=== PATIENT | female | born 1940 | race Caucasian/White ===

== ENCOUNTER 2021-01-02 15:05 | Emergency (ER) | payer MEDICARE, OTHER ==
--- NOTE | 2021-01-02 15:23 | EDM.PDOC ---
ED HPI GENERAL MEDICAL PROBLEM - General Chief Complaint: Genitourinary Problem Stated Complaint: POSSIBLE UTI Time Seen by Provider: 01/02/21 15:22 - History of Present Illness INITIAL COMMENTS - FREE TEXT/NARRATIVE: 80-year-old female presents the emergency room with urinary tract symptoms. Patient is developed some burning and frequency with urination over the last day and a half or so. She has not had associated fevers or chills. No nausea or vomiting. No significant abdominal pain. Just some suprapubic discomfort and discomfort when she voids and the sensation that she has to go all the time. - Related Data Allergies Allergy/AdvReac Type Severity Reaction Status Date / Time No Known Allergies Allergy Verified 11/12/14 09:08 Home Meds: Home Meds Latanoprost/Pf [Latanoprost 0.005% Eye Drop] 1 drop TOP ASDIRECTED 01/02/21 [History] cephALEXin [Keflex] 500 mg PO BID #14 cap 01/02/21 [Rx] hydroCHLOROthiazide [Hydrochlorothiazide] 25 mg PO DAILY 01/02/21 [History] ED ROS GENERAL - Review of Systems Review Of Systems: See Below Constitutional: Reports: No Symptoms Respiratory: Reports: No Symptoms Cardiovascular: Reports: No Symptoms GI/Abdominal: Reports: No Symptoms : Reports: Dysuria, Frequency, Urgency. Denies: Flank Pain ED EXAM, GENERAL - Physical Exam Exam: See Below Exam Limited By: No Limitations General Appearance: Alert, No Apparent Distress Respiratory/Chest: No Respiratory Distress, Lungs Clear, Normal Breath Sounds Cardiovascular: Regular Rate, Rhythm, No Edema, No Murmur GI/Abdominal: Normal Bowel Sounds, Soft, Tender (Suprapubic discomfort). No: Guarding, Rigid, Rebound Back Exam: Normal Inspection. No: CVA Tenderness (L), CVA Tenderness (R) Course - Vital Signs Last Recorded V/S: Last Vital Signs Temp 36.6 C 01/02/21 15:41 Pulse 107 H 01/02/21 15:41 Resp 20 01/02/21 15:41 BP 145/91 H 01/02/21 15:41 Pulse Ox 94 L 01/02/21 15:41 - Orders/Labs/Meds Labs: Laboratory Tests 01/02/21 Range/Units 15:16 Urine Color Yellow (Yellow) Urine Appearance Slt cloudy H (Clear) Urine pH 6.0 (5.0-8.0) Ur Specific Elsie 1.020 (1.005-1.030) Urine Protein Negative (Negative) Urine Glucose (UA) Negative (Negative) Urine Ketones 1+ H (Negative) Urine Occult Blood Trace-intact H (Negative) Urine Nitrite Negative (Negative) Urine Bilirubin Negative (Negative) Urine Urobilinogen 1.0 (0.2-1.0) Ur Leukocyte Esterase 1+ H (Negative) Urine RBC 5-10 H (0-5) /hpf Urine WBC 10-20 H (0-5) /hpf Ur Squamous Epith Cells 5-10 H (0-5) /hpf Urine Bacteria Moderate H (FEW) /hpf Urine Mucus Rare (FEW) /hpf - Re-Assessments/Exams Free Text/Narrative Re-Assessment/Exam: 01/02/21 16:22 Urinalysis is suggestive of a UTI however it is not the cleanest specimen in the world I gave the patient the option for us to obtain a specimen using a catheter but this was declined. We will treat based off what we have here. The patient will be started on Keflex 500 mg twice daily for 7 days. Departure - Departure Time of Disposition: 16:23 Disposition: Home, Self-Care 01 Clinical Impression: UTI, Urinary tract infectious disease - Discharge Information Referrals: Gisele Everett NP [Primary Care Provider] - Forms: ED Department Discharge Additional Instructions: Return to the emergency room with any questions problems or worsening symptoms. Follow-up with your regular healthcare provider several days after you finish the antibiotics. 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 Sepsis Event Note (ED) - Focused Exam Vital Signs: Vital Signs Temp Pulse Resp BP Pulse Ox 01/02/21 15:41 36.6 C 107 H 20 145/91 H 94 L
[2021-01-02] MEDS ORDERED: Cephalexin 500 MG Cap PO ONE ×2 (16:08→16:18)
== END 2021-01-02 16:35 | disposition home or self-care (01) ==
LOC: JD.ED 15:05
DX: N39.0 Urinary tract infection, site not specified (principal); Z79.899 Other long term (current) drug therapy
CPT/HCPCS: 81001; 99283; A9270